=== PATIENT | male | born 1985 ===

== ENCOUNTER → 2019-04-02 18:32 | Emergency (ER) | payer SELFPAY | END | disposition left against medical advice (07) | LOC: C.ER 18:32 | DX: Z02.89 Encounter for other administrative examinations (principal); J02.9 Acute pharyngitis, unspecified ==

== ENCOUNTER 2019-04-02 21:00 | Emergency (ER) | payer SELFPAY ==
[2019-04-02 21:13] VITALS: BP 133/82; PULSE 74; TEMP 98.7; O2SAT 99
--- NOTE | 2019-04-02 23:20 | C.PDOC ---
History Of Present Illness 33 year old male presents to the ED c/o sore throat for the past 6 months. Patient reports he has tried five different antibiotics with no relief to symptoms. Patient also had one visit to ENT, had a scope done with no major results. Patient was not able to keep ENT visits due to insurance troubles. Patient secondary complaint is right testicular pain for the past 3 days. Patient denies fever, chills, SOB. facial swelling, wheezing, rash, penile discharge, dysuria, hematuria. Time Seen by Provider: 04/02/19 21:55 Chief Complaint (Nursing): ENT Problem History Per: Patient History/Exam Limitations: no limitations Onset/Duration Of Symptoms: Days Recent travel outside of the [place]: No Additional History Per: Patient Past Medical History Reviewed: Historical Data, Nursing Documentation, Vital Signs Vital Signs: Last Vital Signs Temp 98.7 F 04/02/19 21:11 Pulse 74 04/02/19 21:11 Resp 14 04/02/19 21:11 BP 133/82 04/02/19 21:11 Pulse Ox 99 04/02/19 21:11 Primary Care Provider: FAMILY PROVIDER,NO - Medical History PMH: No Chronic Diseases Surgical History: No Surg Hx Family History: States: Unknown Family Hx - Social History Hx Alcohol Use: No Hx Substance Use: No - Immunization History Hx Tetanus Toxoid Vaccination: No Hx Influenza Vaccination: No Hx Pneumococcal Vaccination: No Review Of Systems Constitutional: Negative for: Fever, Chills, Weakness ENT: Positive for: Throat Pain. Negative for: Mouth Swelling Respiratory: Negative for: Cough, Shortness of Breath, Wheezing Gastrointestinal: Negative for: Vomiting, Diarrhea Genitourinary: Positive for: Scrotal Pain. Negative for: Dysuria, Penile Dis charge Musculoskeletal: Negative for: Back Pain Skin: Negative for: Rash Physical Exam - Physical Exam Appears: Well, Non-toxic, No Acute Distress Skin: Normal Color, Warm, Dry Head: Atraumatic, Normacephalic Eye(s): bilateral: Normal Inspection (no scleral icterus), PERRL, EOMI Ear(s): Bilateral: Normal (no drainage) Nose: Normal Oral Mucosa: Moist Tongue: Other (discoloration) Throat: Normal (no swelling or injection), No Erythema, No Exudate, Other (airway patent) Neck: Normal ROM, Supple Chest: Symmetrical Respiratory: No Accessory Muscle Use, Other (normal inspiratory effort) Gastrointestinal/Abdominal: Soft, No Tenderness, No Guarding, No Rebound Back: Other (upright steady gait) Male Genital: Testicular Tenderness (right testicle, elevated when compared to left testicle), No Inguinal Swelling Extremity: Bilateral: Atraumatic, Normal ROM Neurological/Psych: Oriented x3, Normal Speech ED Course And Treatment O2 Sat by Pulse Oximetry: 99 (ON RA) Pulse Ox Interpretation: Normal - CT Scan/US US testicular Other Rad Studies (CT/US): Read By Radiologist, Radiology Report Reviewed CT/US Interpretation: EXAM: US Scrotum. CLINICAL HISTORY: R/o torsion. TECHNIQUE: Real-time ultrasound of the scrotum with color Doppler and image documentation. COMPARISON: None provided. FINDINGS: RIGHT TESTICLE: Right testicle measures 4.2 x 2.3 x 3.0 cm and demonstrates normal Doppler flow. LEFT TESTICLE: Left testicle measures 4.9 x 2.4 x 3.3 cm and demonstrates normal Doppler flow. EPIDIDYMIDES: Right epididymal head measures 1. 5 cm in greatest dimension. Small right epididymal head cyst measures 0.2 cm. Left epididymal head measures 1.0 cm. SCROTUM: There are small bilateral hydroceles. 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 These are nonspecific are known to correlate with a slightly increased risk of testicular malignancy over time. No evidence for testicular torsion as clinically question. IMPRESSION: 1. 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 These are nonspecific are known to correlate with a slightly increased risk of testicular malignancy over time. 2. There are small bilateral hydroceles. 3. No evidence for testicular torsion as clinically question. 4. Additional findings as described above. . Electronically signed on April 02, 2019 11:16:58 PM EDT by: Raffaele Beavers M.D., Certified by [facility], Diagnostic Radiology Medical Decision Making Medical Decision Making: Plan: * US testicular * Chlamydia/GC this patient does not have torsion or epididymitis his sore throat symptoms is possible due to acid reflux given how it been there. Disposition Counseled Patient/Family Regarding: Studies Performed, Diagnosis, Need For Followup, Rx Given - Disposition Referrals: [facility] [Outside] Disposition: HOME/ ROUTINE Disposition Time: 23:48 Condition: STABLE Prescriptions: Aluminum Hydroxide/Magnesium H [Maalox 30 ml] 30 ml PO TID 10 Days udc Omeprazole 20 mg PO DAILY #30 tablet. 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 - Scribe Statement The provider has reviewed the documentation as recorded by the Scribe Ryees Gee All medical record entries made by the Joelleibsaulo were at my direction and personally dictated by me. I have reviewed the chart and agree that the record accurately reflects my personal performance of the history, physical exam, medical decision making, and the department course for this patient. I have also personally directed, reviewed, and agree with the discharge instructions and disposition.
[2019-04-02 23:58] VITALS: RESP 20
--- NOTE | 2019-04-03 10:47 | US ---
Date of service: 04/02/2019 HISTORY: r/o torsion TECHNIQUE: Realtime sonography through the scrotum with color and doppler flow. COMPARISON: To this thick 1 with gone on her FINDINGS: RIGHT TESTICLE: Measures 4.2 x 2.3 x 3.0 cm. Homogeneous echotexture. No mass. Testicular microlithiasis noted. RIGHT EPIDIDYMIS: Normal size, morphology and vascularity. 2 mm epididymal cyst noted. LEFT TESTICLE: Measures 4.9 x 2.4 x 3.3 cm. Homogeneous echotexture. No mass. Testicular microlithiasis noted. LEFT EPIDIDYMIS: Normal size, morphology and vascularity.No mass. HYDROCELE: Trace bilateral hydrocele. VARICOCELE: Questionable very small right varicocele. No left varicocele. OTHER FINDINGS: None. IMPRESSION: Bilateral testicular microlithiasis. 2 mm right epididymal cyst. No evidence of testicular torsion. The preliminary findings for this examination were reported by [facility] at 11:16 p.m. on 04/02/2019. There is concurrence of this report with the preliminary findings.
== END 2019-04-02 23:57 | disposition home or self-care (01) ==
LOC: C.ER 21:00
DX: K21.9 Gastro-esophageal reflux disease without esophagitis (principal); N43.3 Hydrocele, unspecified